=== PATIENT | male | born 1995 | race Caucasian/White ===

== ENCOUNTER 2018-02-25 11:17 | Emergency (ER) | payer BC ==
[2018-02-25] MEDS ORDERED: NA CHLORIDE 0.9% 1,000 ML ONE (11:59)
[2018-02-25] MEDS ORDERED: ONDANSETRON 4 MG/2 ML VIAL ONE (11:59)
[2018-02-25 12:03] LABS: Absolute Lymphocytes (CBC) 1.2 K/uL (0.7-4.9); Absolute Neutrophil 7.2 K/uL (1.8-8.0); Basophils % 0.8 % (0-1.3); Eosinophils % 0.3 % (0-4.4); Hematocrit 52.1 % (39.6-49.0); MCH 35.7 pg (27.0-35.0); MCV 101.4 fL (80-100); Monocytes % 10.1 % (3.3-12.3); RBC Red Blood Cell Count 5.14 M/uL (4.33-5.43)
[2018-02-25 12:23] LABS: AST/SGOT 159 U/L (15-37); Albumin 4.7 g/dL (3.4-5.0); Alkaline Phosphatase 201 U/L (45-117); BUN Blood Urea Nitrogen 20 mg/dL (7-18); Bicarbonate 17 mmol/L (21-32); Bilirubin Direct 0.5 mg/dL (0-0.2); Bilirubin Total 0.9 mg/dL (0.2-1.0); Glucose Level 110 mg/dL (74-106); Lipase 95 U/L (73-393); Potassium 3.9 mmol/L (3.5-5.1); Protein, Total 7.9 g/dL (6.4-8.2); Sodium Level 137 mmol/L (136-145)
[2018-02-25 12:48] LABS: ALT/SGPT 362 U/L (12-78)
--- NOTE | 2018-02-25 13:10 | ER ---
Nurse's Notes [facility] Name: Marco Delgado Age: 22 yrs Sex: Male : 1995 Arrival Date: 02/25/2018 Time: 11:21 Bed 19 Private MD: Adama Aguilera Diagnosis: Vomiting;Dehydration;Abnormal results of liver function studies Presentation: 02/25 11:23 Presenting complaint: Patient states: Patient reports vomiting for 5 days with 2 aj episodes of vomiting dark red blood. Presents to triage drinking water. Reports that he is able to urinate with no problems and is able to tolerate his hydrocodone when he takes it. Patient requested Phenergan in triage. Transition of care: patient was not received from another setting of care. Onset of symptoms was February 20, 2018. Risk Assessment: Do you want to hurt yourself or someone else? Patient reports no desire to harm self or others. Initial Sepsis Screen: Does the patient meet any 2 criteria? No. Patient's initial sepsis screen is negative. Does the patient have a suspected source of infection? No. Patient's initial sepsis screen is negative. Care prior to arrival: None. 11:23 Method Of Arrival: Ambulatory 11:23 Acuity: ALLY 3 aj Triage Assessment: 11:26 General: Appears in no apparent distress. uncomfortable, Behavior is calm, cooperative, aj appropriate for age. Pain: Denies pain. Neuro: Level of Consciousness is awake, alert, obeys commands, Oriented to person, place, time, situation, Appropriate for age. Respiratory: Airway is patent Respiratory effort is even, unlabored, Respiratory pattern is regular, symmetrical. GI: Reports nausea, vomiting, Vomiting dark red blood x 2 episodes. Derm: Skin is intact, is healthy with good turgor, Skin is pink, warm \\T\\ dry. normal. Historical: - Allergies: 11:26 No Known Allergies; aj - Home Meds: 11:26 Hydrocodone-Acetaminophen Oral [Active]; aj - PMHx: 11:26 "teeth pain"; aj - PSHx: 11:26 Knee surgery; aj - Immunization history:: Adult Immunizations up to date. - Social history:: Smoking status: Patient uses tobacco products, smokes one-half pack cigarettes per day. - Ebola Screening: : Patient negative for fever greater than or equal to 101.5 degrees Fahrenheit, and additional compatible Ebola Virus Disease symptoms Patient denies exposure to infectious person Patient denies travel to an Ebola-affected area in the 21 days before illness onset No symptoms or risks identified at this time. Screenin:28 Abuse screen: Denies threats or abuse. Nutritional screening: No deficits noted. iw Tuberculosis screening: No symptoms or risk factors identified. Fall Risk None identified. Assessment: 12:27 General: Appears in no apparent distress. uncomfortable, Behavior is calm, cooperative, em appropriate for age. Pain: Denies pain. Neuro: Level of Consciousness is awake, alert, obeys commands, Oriented to person, place, time, situation. Cardiovascular: Heart tones S1 S2 present Capillary refill < 3 seconds Patient's skin is warm and dry. Respiratory: Airway is patent Respiratory effort is even, unlabored, Respiratory pattern is regular, symmetrical. GI: Abdomen is flat, Bowel sounds present X 4 quads. Abd is soft and non tender X 4 quads. Reports nausea, vomiting, Patient currently denies diarrhea. : No signs and/or symptoms were reported regarding the genitourinary system. EENT: No signs and/or symptoms were reported regarding the EENT system. Derm: Skin is intact, Skin is pink, warm \\T\\ dry. Musculoskeletal: Capillary refill < 3 seconds, Range of motion: intact in all extremities. 12:30 Reassessment: I agree with previous assessment. hb 12:46 Reassessment: Lab alert: ALT 362, ERD notified. jl7 13:04 Reassessment: Patient appears in no apparent distress at this time. Patient and/or em family updated on plan of care and expected duration. Pain level reassessed. Patient is alert, oriented x 3, equal unlabored respirations, skin warm/dry/pink. pt request to be discharged, feels better, pt d/c IV, bandage applied, no bleeding noted Patient denies pain at this time. Patient states feeling better. Patient states symptoms have improved. Vital Signs: 11:28 BP 122 / 79; Pulse 92; Resp 18; Temp 97.7; Pulse Ox 96% on R/A; Weight 74.84 kg; Height aj 6 ft. 0 in. (182.88 cm); 12:30 BP 118 / 68; Pulse 81; Resp 18; Pulse Ox 99% on R/A; Pain 0/10; em 11:28 Body Mass Index 22.38 (74.84 kg, 182.88 cm) ED Course: 11:21 Patient arrived in ED. rg4 11:21 Adama Aguilera MD is Private Physician. rg4 11:25 Triage completed. aj 11:28 Arm band placed on left wrist. Patient placed in an exam room. aj 11:30 Toro Larson LVN is Primary Nurse. em 11:30 Byron Moseley MD is Attending Physician. gs 11:58 Initial lab(s) drawn, by me, sent to lab. Inserted saline lock: 20 gauge in right 5 antecubital area, using aseptic technique. Blood collected. 11:59 Patient has correct armband on for positive identification. Bed in low position. Call [facility] light in reach. Side rails up X 1. Pulse ox on. NIBP on. 11:59 Basic Metabolic Panel Sent. 5 11:59 CBC with Diff Sent. 5 11:59 Hepatic Function Sent. 5 11:59 Lipase Sent. 5 13:17 IV discontinued, intact, bleeding controlled, No redness/swelling at site. Pressure em dressing applied. 13:18 No provider procedures requiring assistance completed. em Administered Medications: 11:58 Drug: NS 0.9% 1000 ml Route: IV; Rate: 1 bolus; Site: right antecubital; em 12:39 Follow up: IV Status: Completed infusion; IV Intake: 1000ml em 12:06 Drug: Zofran 4 mg Route: IVP; Site: right antecubital; iw 12:30 Follow up: Response: No adverse reaction; Nausea is decreased iw Intake: 12:39 IV: 1000ml; Total: 1000ml. em Outcome: 13:09 Discharge ordered by . gs 13:17 Discharged to home ambulatory. em 13:17 Condition: good 13:17 Discharge instructions given to patient, Instructed on discharge instructions, follow up and referral plans. medication usage, Demonstrated understanding of instructions, follow-up care, medications, Prescriptions given X 1. 13:23 Patient left the ED. em Signatures: Sharlene Ayers RN RN Toro Larson, FIELD LABORER FIELD LABORER em Rebekah Park RN RN Benita Morel RN RN hb Garcia, Rubi rg4 Josephine Chaparro 5 Duyen Ashley RN RN 7 Byron Moseley MD MD gs Corrections: (The following items were deleted from the chart) 11:23 Presenting complaint: Patient states: Patient reports vomiting for 5 days. aj Presents to triage drinking water. Reports that he is able to urinate with no problems aj 11:23 Presenting complaint: Patient states: Patient reports vomiting for 5 days. aj Presents to triage drinking water. Reports that he is able to urinate with no problems and is able to tolerate his hydrocodone when he takes it. aj 11:23 Presenting complaint: Patient states: Patient reports vomiting for 5 days. aj Presents to triage drinking water. Reports that he is able to urinate with no problems and is able to tolerate his hydrocodone when he takes it. Patient requested Phenergan in triage aj
--- NOTE | 2018-02-25 13:10 | EDPHYS ---
Physician Documentation [facility] Name: Marco Delgado Age: 22 yrs Sex: Male : 1995 Arrival Date: 02/25/2018 Time: 11:21 Bed 19 Private MD: Adama Aguilera ED Physician Byron Moseley HPI: 02/25 13:16 This 22 yrs old Male presents to ER via Ambulatory with complaints of gs Vomiting. 13:16 The patient presents to the emergency department with nausea, vomiting. Onset: The gs symptoms/episode began/occurred suddenly. Possible causes: unknown. The symptoms are aggravated by food , The symptoms are alleviated by nothing. Associated signs and symptoms: Pertinent negatives: abdominal pain. Severity of symptoms: At their worst the symptoms were moderate in the emergency department the symptoms are unchanged. The patient has experienced similar episodes in the past, several times. The patient has not recently seen a physician. Historical: - Allergies: 11:26 No Known Allergies; aj - Home Meds: 11:26 Hydrocodone-Acetaminophen Oral [Active]; aj - PMHx: 11:26 "teeth pain"; aj - PSHx: 11:26 Knee surgery; aj - Immunization history:: Adult Immunizations up to date. - Social history:: Smoking status: Patient uses tobacco products, smokes one-half pack cigarettes per day. - Ebola Screening: : Patient negative for fever greater than or equal to 101.5 degrees Fahrenheit, and additional compatible Ebola Virus Disease symptoms Patient denies exposure to infectious person Patient denies travel to an Ebola-affected area in the 21 days before illness onset No symptoms or risks identified at this time. ROS: 13:16 All other systems are negative. gs Exam: 13:16 Head/Face: Normocephalic, atraumatic. Eyes: Pupils equal round and reactive to light, gs extra-ocular motions intact. Lids and lashes normal. Conjunctiva and sclera are non-icteric and not injected. Cornea within normal limits. Periorbital areas with no swelling, redness, or edema. ENT: Nares patent. No nasal discharge, no septal abnormalities noted. Tympanic membranes are normal and external auditory canals are clear. Oropharynx with no redness, swelling, or masses, exudates, or evidence of obstruction, uvula midline. Mucous membranes moist. Neck: Trachea midline, no thyromegaly or masses palpated, and no cervical lymphadenopathy. Supple, full range of motion without nuchal rigidity, or vertebral point tenderness. No Meningismus. Chest/axilla: Normal chest wall appearance and motion. Nontender with no deformity. No lesions are appreciated. Cardiovascular: Regular rate and rhythm with a normal S1 and S2. No gallops, murmurs, or rubs. Normal PMI, no JVD. No pulse deficits. Respiratory: Lungs have equal breath sounds bilaterally, clear to auscultation and percussion. No rales, rhonchi or wheezes noted. No increased work of breathing, no retractions or nasal flaring. Abdomen/GI: Soft, non-tender, with normal bowel sounds. No distension or tympany. No guarding or rebound. No evidence of tenderness throughout. Back: No spinal tenderness. No costovertebral tenderness. Full range of motion. Skin: Warm, dry with normal turgor. Normal color with no rashes, no lesions, and no evidence of cellulitis. MS/ Extremity: Pulses equal, no cyanosis. Neurovascular intact. Full, normal range of motion. Neuro: Awake and alert, GCS 15, oriented to person, place, time, and situation. Cranial nerves II-XII grossly intact. Motor strength 5/5 in all extremities. Sensory grossly intact. Cerebellar exam normal. Normal gait. 13:16 Constitutional: The patient appears alert, awake. Vital Signs: 11:28 BP 122 / 79; Pulse 92; Resp 18; Temp 97.7; Pulse Ox 96% on R/A; Weight 74.84 kg; Height aj 6 ft. 0 in. (182.88 cm); 12:30 BP 118 / 68; Pulse 81; Resp 18; Pulse Ox 99% on R/A; Pain 0/10; em 11:28 Body Mass Index 22.38 (74.84 kg, 182.88 cm) MDM: 11:37 Patient medically screened. gs 13:14 ED course: did not want to stay for lab results says feels better and wants to go home. gs 13:16 Differential diagnosis: Nonspecific abd pain, pancreatitis, viral gastroenteritis, gs gastroenteritis. Data reviewed: vital signs, nurses notes, lab test result(s). Counseling: I had a detailed discussion with the patient and/or guardian regarding: the historical points, exam findings, and any diagnostic results supporting the discharge/admit diagnosis. Response to treatment: the patient's symptoms have markedly improved after treatment. 02/25 11:40 Order name: Basic Metabolic Panel; Complete Time: 13:12 02/25 11:40 Order name: CBC with Diff; Complete Time: 13:12 02/25 11:40 Order name: Hepatic Function; Complete Time: 13:12 02/25 11:40 Order name: Lipase; Complete Time: 13:12 02/25 11:40 Order name: IV Saline Lock; Complete Time: 59 02/25 11:40 Order name: Labs collected and sent; Complete Time: :59 Administered Medications: 11:58 Drug: NS 0.9% 1000 ml Route: IV; Rate: 1 bolus; Site: right antecubital; em 12:39 Follow up: IV Status: Completed infusion; IV Intake: 1000ml em 12:06 Drug: Zofran 4 mg Route: IVP; Site: right antecubital; iw 12:30 Follow up: Response: No adverse reaction; Nausea is decreased iw Disposition: 02/25/18 13:09 Discharged to Home. Impression: Vomiting, Dehydration, Abnormal results of liver function studies. - Condition is Stable. - Discharge Instructions: Dehydration, Adult, Nausea and Vomiting, Adult. - Prescriptions for Zofran 4 mg Oral Tablet - take 1 tablet by ORAL route every 12 hours As needed; 6 tablet. - Medication Reconciliation Form, Thank You Letter, Antibiotic Education, Prescription Opioid Use form. - Follow up: Emergency Department; When: 2 - 3 days; Reason: Re-evaluation by your physician. Signatures: Dispatcher [employer] Sharlene Guzman RN RN aj Munoz, Edgar, ALUMINUM SIDING APPLICATOR ALUMINUM SIDING APPLICATOR em Rebekah Park RN RN iw Byron Moseley MD MD gs Corrections: (The following items were deleted from the chart) 13:13 13:09 02/25/2018 13:09 Discharged to Home. Impression: Vomiting. Condition is Stable. gs Forms are Medication Reconciliation Form, Thank You Letter, Antibiotic Education, Prescription Opioid Use. Follow up: Emergency Department; When: 2 - 3 days; Reason: Re-evaluation by your physician. 13:14 13:13 02/25/2018 13:09 Discharged to Home. Impression: Vomiting; Dehydration. Condition gs is Stable. Discharge Instructions: Nausea and Vomiting, Adult. Prescriptions for Zofran 4 mg Oral Tablet - take 1 tablet by ORAL route every 12 hours As needed; 6 tablet. and Forms are Medication Reconciliation Form, Thank You Letter, Antibiotic Education, Prescription Opioid Use. Follow up: Emergency Department; When: 2 - 3 days; Reason: Re-evaluation by your physician. 13:23 13:14 02/25/2018 13:09 Discharged to Home. Impression: Vomiting; Dehydration; Abnormal em results of liver function studies. Condition is Stable. Discharge Instructions: Nausea and Vomiting, Adult, Dehydration, Adult. Prescriptions for Zofran 4 mg Oral Tablet - take 1 tablet by ORAL route every 12 hours As needed; 6 tablet. and Forms are Medication Reconciliation Form, Thank You Letter, Antibiotic Education, Prescription Opioid Use. Follow up: Emergency Department; When: 2 - 3 days; Reason: Re-evaluation by your physician.
== END 2018-02-25 13:23 | disposition home or self-care (01) ==
LOC: ER 11:17
DX: E86.0 Dehydration (principal); R11.2 Nausea with vomiting, unspecified; R94.5 Abnormal results of liver function studies; F17.210 Nicotine dependence, cigarettes, uncomplicated
CPT/HCPCS: 36415; 80048; 80076; 83690; 85025; 96361; 96374; 99284; J2405; J7030

== ENCOUNTER 2018-06-03 10:40 | Observation (INO) | payer BC ==
[2018-06-03] MEDS ORDERED: ONDANSETRON 4 MG (ODT) TAB ONE (11:02)
[2018-06-03] MEDS ORDERED: NA CHLORIDE 0.9% 1,000 ML ONE ×2 (12:22→13:12)
[2018-06-03 12:28] LABS: Absolute Lymphocytes (CBC) 2.1 K/uL (0.7-4.9); Absolute Monocytes 0.9 K/uL (0.1-1.3); Absolute Neutrophil 11.3 K/uL (1.8-8.0); Basophils % 0.3 % (0-1.3); Eosinophils % 0.1 % (0-4.4); Hematocrit 59.8 % (39.6-49.0); Lymphocytes % 14.4 % (15.3-44.8); MPV 7.5 fL (7.6-11.3); Monocytes % 6.2 % (3.3-12.3); RBC Red Blood Cell Count 5.48 M/uL (4.33-5.43)
[2018-06-03 12:44] LABS: Albumin 5.9 g/dL (3.4-5.0); Bilirubin Direct 0.3 mg/dL (0-0.2); Bilirubin Total 0.7 mg/dL (0.2-1.0); Potassium 3.1 mmol/L (3.5-5.1); Protein, Total 8.9 g/dL (6.4-8.2)
[2018-06-03 12:52] LABS: Blood Morphology Comment NOTED (NOT SEEN); Macrocytosis 1+; Platelet Estimate ADEQ
[2018-06-03] MEDS ORDERED: POTASSIUM 25 MEQ EFFERV TAB ONE (13:43)
[2018-06-03 13:59] LABS: Magnesium 2.1 mg/dL (1.8-2.4)
[2018-06-03 15:17] LABS: Blood Gas Oxyhemoglobin 94.6 % (94-97); Blood O2 Saturation 96.6 % (92-98.5)
[2018-06-03 15:48] LABS: Urine Bacteria <20 /HPF (NONE SEEN); Urine RBC <5 /HPF (NONE SEEN)
[2018-06-03 15:49] LABS: Urine Culture Reflex Order NOT NEEDED
--- NOTE | 2018-06-03 16:00 | EDPHYS ---
Physician Documentation [facility] Name: Marco Delgado Age: 23 yrs Sex: Male : 1995 Arrival Date: 06/03/2018 Time: 10:41 Bed 6 Private MD: None, None ED Physician Byron Moseley HPI: 06/03 15:53 This 23 yrs old Male presents to ER via Ambulatory with complaints of gs Vomiting. 15:53 The patient presents to the emergency department with nausea, vomiting. Onset: The gs symptoms/episode began/occurred 1 week(s) ago, and became worse and became persistent. Possible causes: unknown. The symptoms are aggravated by nothing. The symptoms are alleviated by nothing. Associated signs and symptoms: Pertinent negatives: abdominal pain, diarrhea, GI bleeding. Severity of symptoms: At their worst the symptoms were severe incapacitating in the emergency department the symptoms are unchanged. The patient has experienced similar episodes in the past, a few times. Historical: - Allergies: 10:46 No Known Allergies; la1 - Home Meds: 12:36 None [Active]; hj - PMHx: 10:46 "teeth pain"; la1 - PSHx: 12:36 None; hj - Immunization history:: Adult Immunizations up to date. - Social history:: Smoking status: Patient uses tobacco products, smokes one-half pack cigarettes per day. - Ebola Screening: : No symptoms or risks identified at this time. ROS: 15:53 All other systems are negative. gs Exam: 15:53 Head/Face: Normocephalic, atraumatic. Eyes: Pupils equal round and reactive to light, gs extra-ocular motions intact. Lids and lashes normal. Conjunctiva and sclera are non-icteric and not injected. Cornea within normal limits. Periorbital areas with no swelling, redness, or edema. ENT: Nares patent. No nasal discharge, no septal abnormalities noted. Tympanic membranes are normal and external auditory canals are clear. Oropharynx with no redness, swelling, or masses, exudates, or evidence of obstruction, uvula midline. Mucous membranes moist. Neck: Trachea midline, no thyromegaly or masses palpated, and no cervical lymphadenopathy. Supple, full range of motion without nuchal rigidity, or vertebral point tenderness. No Meningismus. Chest/axilla: Normal chest wall appearance and motion. Nontender with no deformity. No lesions are appreciated. Cardiovascular: Regular rate and rhythm with a normal S1 and S2. No gallops, murmurs, or rubs. Normal PMI, no JVD. No pulse deficits. Respiratory: Lungs have equal breath sounds bilaterally, clear to auscultation and percussion. No rales, rhonchi or wheezes noted. No increased work of breathing, no retractions or nasal flaring. Abdomen/GI: Soft, non-tender, with normal bowel sounds. No distension or tympany. No guarding or rebound. No evidence of tenderness throughout. Back: No spinal tenderness. No costovertebral tenderness. Full range of motion. Skin: Warm, dry with normal turgor. Normal color with no rashes, no lesions, and no evidence of cellulitis. MS/ Extremity: Pulses equal, no cyanosis. Neurovascular intact. Full, normal range of motion. Neuro: Awake and alert, GCS 15, oriented to person, place, time, and situation. Cranial nerves II-XII grossly intact. Motor strength 5/5 in all extremities. Sensory grossly intact. Cerebellar exam normal. Normal gait. 15:53 Constitutional: The patient appears alert, awake, pale. Vital Signs: 10:49 BP 112 / 87; Pulse 97; Resp 18; Temp 97.2; Pulse Ox 98% on R/A; Weight 54.43 kg; Height la1 6 ft. (182.88 cm); 12:33 BP 131 / 88; Pulse 85; Resp 18; Pulse Ox 100% on R/A; hj 14:23 BP 120 / 81; Pulse 92; Resp 18; Pulse Ox 100% on R/A; hj 16:04 BP 118 / 78; Pulse 90; Resp 18; Pulse Ox 100% on R/A; hj 16:48 BP 120 / 78; Pulse 89; Resp 18; Pulse Ox 100% on R/A; hj 18:16 BP 122 / 75; Pulse 78; Resp 18; Pulse Ox 98% on R/A; hj 18:51 BP 122 / 85; Pulse 75; Resp 18; Pulse Ox 100% on R/A; hj 19:44 BP 133 / 82; ag4 19:44 Pulse 80; Resp 14; Temp 99.1(T); Pulse Ox 98% ; ag4 10:49 Body Mass Index 16.27 (54.43 kg, 182.88 cm) la1 MDM: 12:03 Patient medically screened. 15:53 Differential diagnosis: cholecystitis, pancreatitis, viral gastroenteritis, gs gastroenteritis. Data reviewed: vital signs, nurses notes. Response to treatment: the patient's symptoms have markedly improved after treatment, and as a result, I will admit patient. 06/03 12:08 Order name: Basic Metabolic Panel; Complete Time: 14:08 06/03 12:08 Order name: CBC with Diff; Complete Time: 12:56 06/03 12:08 Order name: Hepatic Function; Complete Time: 14:08 06/03 12:08 Order name: Lipase; Complete Time: 14:08 06/03 12:52 Order name: Manual Differential; Complete Time: 12:56 EDMS 06/03 12:58 Order name: Urine Microscopic Only; Complete Time: 16:00 06/03 13:55 Order name: Magnesium; Complete Time: 14:08 EDMS 06/03 14:09 Order name: Osmolality, Serum; Complete Time: 15:44 06/03 14:41 Order name: ABG; Complete Time: 15:44 06/03 15:33 Order name: Urine Dipstick--Ancillary (enter results) 06/03 15:48 Order name: Urine Drug Screen 06/03 15:48 Order name: ETOH Level 06/03 12:08 Order name: IV Saline Lock; Complete Time: 12:09 06/03 12:08 Order name: Labs collected and sent; Complete Time: 12:09 06/03 12:58 Order name: Urine Dipstick-Ancillary (obtain specimen); Complete Time: 14:53 06/03 13:31 Order name: PO challenge; Complete Time: 13:33 Administered Medications: 10:51 Drug: Zofran 4 mg Route: PO; la1 12:57 Follow up: Response: No adverse reaction hj 12:09 Drug: NS 0.9% 1000 ml Route: IV; Rate: 1 bolus; Site: right antecubital; hj 12:57 Follow up: IV Status: Completed infusion hj 12:58 Drug: NS 0.9% 1000 ml Route: IV; Rate: 1 bolus; Site: right antecubital; hj 13:34 Follow up: IV Status: Completed infusion hj 13:24 Drug: Potassium Effervescent Tablet 50 mEq Route: PO; 13:34 Follow up: Response: No adverse reaction Point of Care Testing: Blood Glucose: 11:25 Blood Glucose: 121 mg/dL; dom Ranges: Critical Glucose Levels:Adult <50 mg/dl or >400 mg/dl <40 mg/dl or >180 mg/dl Disposition: 06/03/18 15:59 Hospitalization ordered by Kd Araya for Inpatient Admission. Preliminary diagnosis are Metabolic acidemia, unspecified, Dehydration. - Bed requested for Telemetry/MedSurg (Inpatient). - Status is Inpatient Admission. ed1 - Condition is Stable. - Problem is new. - Symptoms have improved. UTI on Admission? No Signatures: Dispatcher [employer] EDMS Rebekah Park, RN JORDON Celina Adler RN RN ed1 Efren Yeager RN RN la1 Rafael Villegas RN RN hj Starr, Gregory, MD MD Corrections: (The following items were deleted from the chart) 13:01 12:59 UA MICROSCOPIC+U.LAB.BRZ ordered. EDNJ EDMS 13:56 13:24 MAGNESIUM+C.LAB.BRZ ordered. EDNJ EDMS 18:50 15:59 Hospitalization Ordered by Kd Araya MD for Inpatient Admission. Preliminary diagnosis is Metabolic acidemia, unspecified; Dehydration. Bed requested for Telemetry/MedSurg (Inpatient). Status is Inpatient Admission. Condition is Stable. Problem is new. Symptoms have improved. UTI on Admission? No. 19:58 18:50 06/03/2018 15:59 Hospitalization Ordered by Kd Araya MD for Inpatient ed1 Admission. Preliminary diagnosis is Metabolic acidemia, unspecified; Dehydration. Bed requested for Telemetry/MedSurg (Inpatient). Status is Inpatient Admission. Condition is Stable. Problem is new. Symptoms have improved. UTI on Admission? No. iw
--- NOTE | 2018-06-03 16:00 | ER ---
Nurse's Notes [facility] Name: Marco Delgado Age: 23 yrs Sex: Male : 1995 Arrival Date: 06/03/2018 Time: 10:41 Bed 6 Private MD: None, None Diagnosis: Metabolic acidemia, unspecified;Dehydration Presentation: 06/03 10:46 Presenting complaint: Patient states: For more than a week I am vomiting 20 or more la1 times a day. Transition of care: patient was not received from another setting of care. Onset of symptoms. Risk Assessment: Do you want to hurt yourself or someone else? Patient reports no desire to harm self or others. Initial Sepsis Screen: Does the patient meet any 2 criteria? No. Patient's initial sepsis screen is negative. Does the patient have a suspected source of infection? No. Patient's initial sepsis screen is negative. Care prior to arrival: None. 10:46 Method Of Arrival: Ambulatory la1 10:46 Acuity: ALLY 3 la1 Triage Assessment: 12:34 General: Appears in no apparent distress. uncomfortable, Behavior is calm, cooperative, hj appropriate for age. Pain: Denies pain. EENT: No signs and/or symptoms were reported regarding the EENT system. Neuro: Level of Consciousness is awake, alert, obeys commands, Oriented to person, place, time, situation, Appropriate for age. GI: Reports vomiting. Historical: - Allergies: 10:46 No Known Allergies; la1 - Home Meds: 12:36 None [Active]; hj - PMHx: 10:46 "teeth pain"; la1 - PSHx: 12:36 None; hj - Immunization history:: Adult Immunizations up to date. - Social history:: Smoking status: Patient uses tobacco products, smokes one-half pack cigarettes per day. - Ebola Screening: : No symptoms or risks identified at this time. Screenin:34 Abuse screen: Denies threats or abuse. Denies injuries from another. Nutritional hj screening: No deficits noted. Tuberculosis screening: No symptoms or risk factors identified. Fall Risk None identified. Assessment: 14:30 General: Appears in no apparent distress. uncomfortable, Behavior is calm, cooperative, hj appropriate for age. Pain: Denies pain. Neuro: Level of Consciousness is awake, alert, obeys commands, Oriented to person, place, time, situation, Appropriate for age. Cardiovascular: Capillary refill < 3 seconds Patient's skin is warm and dry. Respiratory: Airway is patent Respiratory effort is even, unlabored, Respiratory pattern is regular, symmetrical. GI: Reports vomiting. GI: Abdomen is non-distended. : No signs and/or symptoms were reported regarding the genitourinary system. EENT: No signs and/or symptoms were reported regarding the EENT system. Derm: No signs and/or symptoms reported regarding the dermatologic system. Musculoskeletal: No signs and/or symptoms reported regarding the musculoskeletal system. 15:30 Reassessment: Patient and/or family updated on plan of care and expected duration. Pain hj level reassessed. Patient is alert, oriented x 3, equal unlabored respirations, skin warm/dry/pink. Patient states feeling better. Patient states symptoms have improved. 16:48 Reassessment: Patient and/or family updated on plan of care and expected duration. Pain hj level reassessed. Patient is alert, oriented x 3, equal unlabored respirations, skin warm/dry/pink. aware of being admitted;l. 17:45 Reassessment: Patient and/or family updated on plan of care and expected duration. Pain hj level reassessed. Patient is alert, oriented x 3, equal unlabored respirations, skin warm/dry/pink. Patient states feeling better. Patient states symptoms have improved. 18:14 Reassessment: Patient and/or family updated on plan of care and expected duration. Pain hj level reassessed. Patient is alert, oriented x 3, equal unlabored respirations, skin warm/dry/pink. awaiting for room placement; Patient states feeling better. Patient states symptoms have improved. Vital Signs: 10:49 BP 112 / 87; Pulse 97; Resp 18; Temp 97.2; Pulse Ox 98% on R/A; Weight 54.43 kg; Height la1 6 ft. (182.88 cm); 12:33 BP 131 / 88; Pulse 85; Resp 18; Pulse Ox 100% on R/A; hj 14:23 BP 120 / 81; Pulse 92; Resp 18; Pulse Ox 100% on R/A; hj 16:04 BP 118 / 78; Pulse 90; Resp 18; Pulse Ox 100% on R/A; hj 16:48 BP 120 / 78; Pulse 89; Resp 18; Pulse Ox 100% on R/A; hj 18:16 BP 122 / 75; Pulse 78; Resp 18; Pulse Ox 98% on R/A; hj 18:51 BP 122 / 85; Pulse 75; Resp 18; Pulse Ox 100% on R/A; hj 19:44 BP 133 / 82; ag4 19:44 Pulse 80; Resp 14; Temp 99.1(T); Pulse Ox 98% ; ag4 10:49 Body Mass Index 16.27 (54.43 kg, 182.88 cm) la1 ED Course: 10:41 Patient arrived in ED. dl4 10:41 None, None is Private Physician. dl4 10:47 Triage completed. la1 10:47 Arm band placed on left wrist. la1 11:21 Byron Moseley MD is Attending Physician. gs 11:22 Shawanda Beal, RN is Primary Nurse. ph 11:26 Initial lab(s) drawn, by me. Inserted saline lock: 20 gauge in right antecubital area, hj using aseptic technique. Blood collected. 12:34 Patient has correct armband on for positive identification. Placed in gown. Bed in low hj position. Call light in reach. Side rails up X 1. Adult w/ patient. 14:41 Osmolality, Serum Sent. hj 15:54 Kd Araya MD is Hospitalizing Provider. gs 16:47 ETOH Level Sent. hj 18:40 Urine Drug Screen Sent. hj 19:15 Primary Nurse role handed off by Shawanda Beal, RN ed1 19:15 Celina Adler, RN is Primary Nurse. ed1 19:50 No provider procedures requiring assistance completed. Patient admitted, IV remains in ed1 place. intact, No redness/swelling at site. Administered Medications: 10:51 Drug: Zofran 4 mg Route: PO; la1 12:57 Follow up: Response: No adverse reaction hj 12:09 Drug: NS 0.9% 1000 ml Route: IV; Rate: 1 bolus; Site: right antecubital; hj 12:57 Follow up: IV Status: Completed infusion hj 12:58 Drug: NS 0.9% 1000 ml Route: IV; Rate: 1 bolus; Site: right antecubital; hj 13:34 Follow up: IV Status: Completed infusion hj 13:24 Drug: Potassium Effervescent Tablet 50 mEq Route: PO; dom 13:34 Follow up: Response: No adverse reaction dom Point of Care Testing: Blood Glucose: 11:25 Blood Glucose: 121 mg/dL; dom Ranges: Outcome: 15:59 Decision to Hospitalize by Provider. aki 19:57 Admitted to Med/surg accompanied by tech, family with patient, via wheelchair, room ed1 224, with chart, Report called to JORDON Ramirez 19:57 Condition: stable 19:57 Discharge instructions given to patient, family, Instructed on the need for admit, Demonstrated understanding of instructions. 19:58 Patient left the ED. ed1 Signatures: Celina Adler RN RN ed1 Efren Yeager RN RN la1 Shawanda Beal RN RN Rafael Villegas RN RN hj Starr, Gregory, MD MD Sotero Mckeon dl4 Anmol Glaser ag4
[2018-06-03 16:15] LABS: Urine Blood NEGATIVE (NEG); Urine Glucose NEGATIVE (NEG); Urine Protein 2+ (NEG); Urine Specific Gravity >1.030 (1.005-1.030); Urine pH 5.5 (5.0-7.0)
--- NOTE | 2018-06-03 16:56 | P.HP ---
Certification for Inpatient Patient admitted to: Observation With expected LOS: <2 Midnights Practitioner: I am a practitioner with admitting privileges, knowledge of patient current condition, hospital course, and medical plan of care. Services: Services provided to patient in accordance with Admission requirements found in Title 42 Section 412.3 of the Code of Federal Regulations Patient History Date of Service: 06/03/18 Reason for admission: Intractable nausea and vomiting History of Present Illness: This is a 23-year-old male with no past medical history admitted for intractable nausea vomiting for the past 1 week. Per patient, he has been vomiting for the past week. It has been non-bloody and non-bilious without any alleviating or exacerbating factors. Last episode was this morning. He had a similar admission in February 2018 when he was discharged from the ER. He denies any abdominal, diarrhea/constipation, chest pain, shortness of breath, dizziness, headache or any complaints. In the ER, patient was hemodynamically stable, gap of 18, with acidotic with a pH of 7.2 and low bicarb. the his other labs pertinent for glucose of 153, ketones in urine and hypokinesia medium. In the ER, he received Zofran, potassium and IV fluids. My exam patient was hemodynamically stable, alert oriented x3, though very sleepy. He is arousable, able to answer questions but appropriately and he was in no acute distress. Review of Systems 10-point ROS is otherwise unremarkable Physical Examination - Physical Exam General: Alert, In no apparent distress, Oriented x3, Other (Very sleepy, laying in dark with hoodie over his head, refusing to open his eyes for too long.) HEENT: Atraumatic, PERRLA, Mucous membr. moist/pink, EOMI, Sclerae nonicteric Neck: Supple, 2+ carotid pulse no bruit, No LAD, Without JVD or thyroid abnormality Respiratory: Clear to auscultation bilaterally, Normal air movement Cardiovascular: Regular rate/rhythm, Normal S1 S2 Gastrointestinal: Normal bowel sounds, No tenderness Musculoskeletal: No tenderness Integumentary: No rashes Neurological: Normal gait, Normal speech, Normal strength at 5/5 x4 extr, Normal tone, Normal affect Lymphatics: No axilla or inguinal lymphadenopathy - Studies Laboratory Data (last 24 hrs) 06/03/18 13:24: Magnesium Cancelled 06/03/18 12:10: WBC 14.3 H, Hgb 20.2 H, Hct 59.8 H, Plt Count 421 H 06/03/18 12:10: Sodium 138, Potassium 3.1 L, BUN 8, Creatinine 1.31 H, Glucose 153 H, Magnesium 2.1, Total Bilirubin 0.7, AST 15, ALT 35, Alkaline Phosphatase 139 H, Lipase 92 Assessment and Plan - Problems (Diagnosis) (1) Intractable nausea and vomiting Current Visit: Yes Status: Acute Qualifiers: Vomiting type: unspecified Qualified Code(s): R11.2 - Nausea with vomiting , unspecified (2) Metabolic acidosis Current Visit: Yes Status: Acute (3) Dehydration Current Visit: Yes Status: Acute (4) Current tobacco use Current Visit: Yes Status: Acute (5) Drug abuse Current Visit: Yes Status: Suspected (6) Hypokalemia Current Visit: Yes Status: Acute - Plan This is a 23-year-old male with: Intractable nausea and vomiting On chart review, patient requested IV Phenergan last time. Will continue with IV Zofran at this time. Patient denies any drug usage, those sounds suspiciously like marijuana induced hyperemesis. Metabolic acidosis Dehydration Continue IV fluids, maintenance dose Continue to monitor via a.m. labs Hypokalemia Replace in the ER. Will continue to monitor Suspected drug usage Patient denies any drug usage. Urinary drug screen pending. Per patient, he has been taking Tylenol #3 And promethazine/codeine past 4-5 months for a sore throat/teeth pain. When asked more details, he stated that he only takes the Tylenol 3 when his back hurts, which is about every 2 days. The last time he took it was this morning. Current tobacco use Current half-pack per day smoker for the past 4-5 years. Counseled on smoking cessation DVT prophylaxis: Lovenox GI prophylaxis: None Diet: Regular Disposition: Admit to floor with tele. Monitor via a.m. labs. Likely discharge home in the next 24 hr. - Advance Directives Does patient have a Living Will: No Does patient have a Durable POA for Healthcare: No
[2018-06-03 19:02] LABS: Barbiturates NEGATIVE (NEGATIVE); Benzodiazepines NEGATIVE (NEGATIVE); Cocaine NEGATIVE (NEGATIVE); METHAMPHETAM NEGATIVE (NEGATIVE); Methadone NEGATIVE (NEGATIVE); Opiates POSITIVE (NEGATIVE); Phencyclidine NEGATIVE (NEGATIVE); THC Cannibis NEGATIVE (NEGATIVE)
[2018-06-03] MEDS ORDERED: ONDANSETRON 4 MG/2 ML VIAL IV PRN (19:55)
[2018-06-03] MEDS: NA CHLORIDE 0.9% 1,000 ML IV SCH (22:06)
[2018-06-04] MEDS: NA CHLORIDE 0.9% 1,000 ML IV SCH (04:48)
[2018-06-04 05:39] LABS: Absolute Lymphocytes (CBC) 2.4 K/uL (0.7-4.9); Absolute Monocytes 0.9 K/uL (0.1-1.3); Absolute Neutrophil 5.3 K/uL (1.8-8.0); Basophils % 0.6 % (0-1.3); Eosinophils % 0.1 % (0-4.4); Hematocrit 44.8 % (39.6-49.0); MPV 7.1 fL (7.6-11.3); RBC Red Blood Cell Count 4.15 M/uL (4.33-5.43)
[2018-06-04 05:54] LABS: ALT/SGPT 20 U/L (12-78); AST/SGOT 11 U/L (15-37); Albumin 4.1 g/dL (3.4-5.0); Alkaline Phosphatase 90 U/L (45-117); BUN Blood Urea Nitrogen 7 mg/dL (7-18); Bicarbonate 18 mmol/L (21-32); Bilirubin Total 0.9 mg/dL (0.2-1.0); Glucose Level 113 mg/dL (74-106); Protein, Total 6.2 g/dL (6.4-8.2); Sodium Level 143 mmol/L (136-145)
[2018-06-04 06:49] LABS: Anisocytosis 2+; Blood Morphology Comment NOTED (NOT SEEN); Platelet Estimate ADEQ; Urine White Blood Cell Casts OK
[2018-06-04 06:50] LABS: Macrocytosis 2+
[2018-06-04] MEDS: KCL 20 MEQ/100 mL IVPB 20 MEQ/100 ML BAG IV SCH ×2 (07:25→09:00)
[2018-06-04] MEDS ORDERED: INFLUENZA VACCINE (for 3y+) 0.5 ML DOSE IMVAC ONE (08:00)
[2018-06-04] MEDS ORDERED: ENOXAPARIN 40 MG/0.4 ML SQ SCH (09:00)
[2018-06-04] MEDS ORDERED: POTASSIUM CL SA 10 MEQ TAB PO ONE (10:25)
--- NOTE | 2018-06-04 10:30 | P.SSS ---
Patient History Date of Service: 06/04/18 Reason for admission: Intractable nausea and vomiting History of Present Illness: This is a 23-year-old male with no past medical history admitted for intractable nausea vomiting for the past 1 week. Per patient, he has been vomiting for the past week. It has been non-bloody and non-bilious without any alleviating or exacerbating factors. Last episode was this morning. He had a similar admission in February 2018 when he was discharged from the ER. He denies any abdominal, diarrhea/constipation, chest pain, shortness of breath, dizziness, headache or any complaints. In the ER, patient was hemodynamically stable, gap of 18, with acidotic with a pH of 7.2 and low bicarb. the his other labs pertinent for glucose of 153, ketones in urine and hypokinesia medium. In the ER, he received Zofran, potassium and IV fluids. My exam patient was hemodynamically stable, alert oriented x3, though very sleepy. He is arousable, able to answer questions but appropriately and he was in no acute distress. Allergies No Known Allergies Allergy (Verified 06/03/18 20:50) Home Medications: NK [No Home Meds] 06/03/18 - Past Medical/Surgical History Has patient received pneumonia vaccine in the past: No Diabetic: No Past Medical History: Patient denies medical history - Social History Smoking Status: Current every day smoker Alcohol use: Yes CD- Drugs: Yes Caffeine use: Yes Place of Residence: Home Review of Systems 10-point ROS is otherwise unremarkable Physical Examination - Vital Signs Temperature: 98 F Blood Pressure: 125/78 Pulse: 68 Respirations: 20 Pulse Ox (%): 98 - Physical Exam General: Alert, In no apparent distress, Oriented x3 HEENT: Atraumatic, PERRLA, Mucous membr. moist/pink, EOMI, Sclerae nonicteric Neck: Supple, 2+ carotid pulse no bruit, No LAD, Without JVD or thyroid abnormality Respiratory: Clear to auscultation bilaterally, Normal air movement Cardiovascular: Regular rate/rhythm, Normal S1 S2 Gastrointestinal: Normal bowel sounds, No tenderness Musculoskeletal: No tenderness Integumentary: No rashes Neurological: Normal gait, Normal speech, Normal strength at 5/5 x4 extr, Normal tone, Normal affect Lymphatics: No axilla or inguinal lymphadenopathy - Studies Laboratory Data (last 24 hrs) 06/03/18 13:24: Magnesium Cancelled 06/03/18 12:10: WBC 14.3 H, Hgb 20.2 H, Hct 59.8 H, Plt Count 421 H 06/03/18 12:10: Sodium 138, Potassium 3.1 L, BUN 8, Creatinine 1.31 H, Glucose 153 H, Magnesium 2.1, Total Bilirubin 0.7, AST 15, ALT 35, Alkaline Phosphatase 139 H, Lipase 92 - Diagnosis (Problem(s)) (1) Intractable nausea and vomiting Current Visit: Yes Status: Acute Qualifiers: Vomiting type: unspecified Qualified Code(s): R11.2 - Nausea with vomiting , unspecified (2) Metabolic acidosis Current Visit: Yes Status: Acute (3) Dehydration Current Visit: Yes Status: Acute (4) Current tobacco use Current Visit: Yes Status: Acute (5) Drug abuse Current Visit: Yes Status: Suspected (6) Hypokalemia Current Visit: Yes Status: Acute Treatment Summary: Patient was admitted for intractable nausea vomiting. He was given IV fluids and kept NPO. In the morning, patient stated his nausea had resolved and he really wanted to eat. He said he wanted us to just bring him his plate for fluid and something to drink something very ice cold. He was hemodynamically stable, alert oriented x3 in no acute distress. His UDS was positive for opiates. He was given a list of primary care physicians to visit after this hospitalization stay. - Disposition Disposition: ROUTINE DISCHARGE Condition: GOOD Patient Discharge Instructions: Please follow up with the primary care physician in 1 week. A list of primary care physicians has been provided to you. Please return to the emergency room for worsening symptoms Diet: Regular Activity: Ad anthony Time Spent Managing Pts Care (In Minutes): 55
== END 2018-06-04 12:31 | disposition home or self-care (01) ==
LOC: ER 10:40 → ERHOLD 16:30 → 2ND 19:54
PROVIDERS: ADMIT Family Medicine; ATTEND Family Medicine
DX: R11.2 Nausea with vomiting, unspecified (principal); E87.2 Acidosis; E86.0 Dehydration; E87.6 Hypokalemia; F17.210 Nicotine dependence, cigarettes, uncomplicated
CPT/HCPCS: 36415; 80048; 80053; 80076; 80307; 80320; 81003; 81015; 82805; 82962; 83690; 83735; 83930; 85025; 94760; 96360; 99285; G0378; J1650; J2405; J7030; Q2035

== ENCOUNTER 2018-09-03 21:11 | Emergency (ER) | payer BC ==
--- NOTE | 2018-09-03 21:48 | ER ---
Nurse's Notes [facility] Name: Marco Delgado Age: 23 yrs Sex: Male : 1995 Arrival Date: 09/03/2018 Time: 21:16 Bed Waiting Private MD: Diagnosis: Presentation: 09/03 21:34 Presenting complaint: Patient states: I haven't been able to keep anything down for 5 ed1 days. I take too many pain pills. Transition of care: patient was not received from another setting of care. Onset of symptoms was August 29, 2018. Risk Assessment: Do you want to hurt yourself or someone else? Patient reports no desire to harm self or others. Initial Sepsis Screen: Does the patient meet any 2 criteria? No. Patient's initial sepsis screen is negative. Does the patient have a suspected source of infection? No. Patient's initial sepsis screen is negative. Care prior to arrival: None. 21:34 Method Of Arrival: Ambulatory ed1 21:34 Acuity: ALLY 3 ed1 Triage Assessment: 21:36 General: Appears uncomfortable, Behavior is anxious. Pain: Complains of pain in abdomen ed1 Pain currently is 10 out of 10 on a pain scale. GI: Reports nausea, vomiting, Patient currently denies diarrhea. Historical: - Allergies: 21:36 No Known Allergies; ed1 - Home Meds: 21:36 None [Active]; ed1 - PMHx: 21:36 None; ed1 - PSHx: 21:36 None; ed1 - Immunization history:: Adult Immunizations up to date. - Social history:: Smoking status: Patient uses tobacco products, smokes one pack cigarettes per day. Patient uses street drugs, Vicodin. - Ebola Screening: : Patient negative for fever greater than or equal to 101.5 degrees Fahrenheit, and additional compatible Ebola Virus Disease symptoms Patient denies exposure to infectious person Patient denies travel to an Ebola-affected area in the 21 days before illness onset No symptoms or risks identified at this time. Vital Signs: 21:36 BP 113 / 86; Pulse 96; Resp 20; Temp 97.8; Pulse Ox 97% on R/A; Weight 70.31 kg; Height ed1 6 ft. 5 in. (195.58 cm); Pain 10/10; 21:36 Body Mass Index 18.38 (70.31 kg, 195.58 cm) ed1 ED Course: 21:16 Patient arrived in ED. am2 21:35 Triage completed. ed1 21:36 Arm band placed on right wrist. Patient placed in waiting room, Patient notified of ed1 wait time. Administered Medications: No medications were administered Outcome: 21:44 Eloped from waiting room, post triage evaluation and consult. Pt did not want to wait ed1 for a room to be cleaned Time discovered patient gone: September 03, 2018 at 21:44 21:44 Condition: Pt eloped 21:44 Discharge instructions given to N/A 21:45 Patient left the ED. ed1 Signatures: Celina Adler RN RN ed1 Sharlene Hernandez am2
== END 2018-09-03 21:45 | disposition left against medical advice (07) ==
LOC: ER 21:11
DX: R11.10 Vomiting, unspecified (principal); F17.210 Nicotine dependence, cigarettes, uncomplicated
CPT/HCPCS: 99281

== ENCOUNTER 2018-09-05 20:45 | Emergency (ER) | payer BC ==
[2018-09-05] MEDS ORDERED: NA CHLORIDE 0.9% 1,000 ML ONE ×2 (21:37→22:27)
[2018-09-05] MEDS ORDERED: ONDANSETRON 4 MG (ODT) TAB ONE (21:43)
[2018-09-05 21:47] LABS: Absolute Lymphocytes (CBC) 1.7 K/uL (0.7-4.9); Absolute Monocytes 0.9 K/uL (0.1-1.3); Absolute Neutrophil 5.7 K/uL (1.8-8.0); Basophils % 0.2 % (0-1.3); Lymphocytes % 20.3 % (15.3-44.8); MPV 6.9 fL (7.6-11.3); Monocytes % 10.4 % (3.3-12.3); RBC Red Blood Cell Count 5.82 M/uL (4.33-5.43)
[2018-09-05 21:50] LABS: Hematocrit 60.7 % (39.6-49.0)
[2018-09-05 22:09] LABS: ALT/SGPT 36 U/L (12-78); AST/SGOT 17 U/L (15-37); Albumin 5.6 g/dL (3.4-5.0); Alkaline Phosphatase 134 U/L (45-117); BUN Blood Urea Nitrogen 21 mg/dL (7-18); Bicarbonate 24 mmol/L (21-32); Bilirubin Total 1.2 mg/dL (0.2-1.0); Creatine Phosphokinase 141 U/L (39-308); Glucose Level 114 mg/dL (74-106); Potassium 3.1 mmol/L (3.5-5.1); Protein, Total 9.6 g/dL (6.4-8.2); Sodium Level 134 mmol/L (136-145)
[2018-09-05 22:12] LABS: Urine Blood TRACE (NEG); Urine Glucose NEGATIVE (NEG); Urine Protein 3+ (NEG); Urine Specific Gravity 1.025 (1.005-1.030); Urine pH 6.5 (5.0-7.0)
[2018-09-05 22:37] LABS: Urine Bacteria <20 /HPF (NONE SEEN); Urine Culture Reflex Order NOT NEEDED; Urine Mucus 2+ /HPF (NONE SEEN); Urine RBC NONE SEEN /HPF (NONE SEEN)
--- NOTE | 2018-09-06 00:01 | EDPHYS ---
Physician Documentation [facility] Name: Marco Delgado Age: 23 yrs Sex: Male : 1995 Arrival Date: 09/05/2018 Time: 20:47 Bed 5 Private MD: ED Physician Byron Moseley HPI: 09/05 23:52 This 23 yrs old Male presents to ER via Ambulatory with complaints of Kidney gs problem. 23:52 The patient presents to the emergency department with nausea, vomiting. Onset: The gs symptoms/episode began/occurred gradually. Possible causes: unknown. The symptoms are aggravated by nothing. The symptoms are alleviated by nothing. Associated signs and symptoms: Pertinent negatives: constipation. Severity of symptoms: At their worst the symptoms were severe in the emergency department the symptoms have improved moderately. The patient has experienced similar episodes in the past, multiple times. chronic drug use, vomiting. 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 - Social history:: Smoking status: Patient uses tobacco products, smokes one pack cigarettes per day. - Ebola Screening: : Patient negative for fever greater than or equal to 101.5 degrees Fahrenheit, and additional compatible Ebola Virus Disease symptoms Patient denies exposure to infectious person Patient denies travel to an Ebola-affected area in the 21 days before illness onset. ROS: 23:52 All other systems are negative. gs Exam: 23:52 Head/Face: Normocephalic, atraumatic. Eyes: Pupils equal round and reactive to light, gs extra-ocular motions intact. Lids and lashes normal. Conjunctiva and sclera are non-icteric and not injected. Cornea within normal limits. Periorbital areas with no swelling, redness, or edema. ENT: Nares patent. No nasal discharge, no septal abnormalities noted. Tympanic membranes are normal and external auditory canals are clear. Oropharynx with no redness, swelling, or masses, exudates, or evidence of obstruction, uvula midline. Mucous membranes moist. Neck: Trachea midline, no thyromegaly or masses palpated, and no cervical lymphadenopathy. Supple, full range of motion without nuchal rigidity, or vertebral point tenderness. No Meningismus. Chest/axilla: Normal chest wall appearance and motion. Nontender with no deformity. No lesions are appreciated. Cardiovascular: Regular rate and rhythm with a normal S1 and S2. No gallops, murmurs, or rubs. Normal PMI, no JVD. No pulse deficits. Respiratory: Lungs have equal breath sounds bilaterally, clear to auscultation and percussion. No rales, rhonchi or wheezes noted. No increased work of breathing, no retractions or nasal flaring. Abdomen/GI: Soft, non-tender, with normal bowel sounds. No distension or tympany. No guarding or rebound. No evidence of tenderness throughout. Back: No spinal tenderness. No costovertebral tenderness. Full range of motion. Skin: Warm, dry with normal turgor. Normal color with no rashes, no lesions, and no evidence of cellulitis. MS/ Extremity: Pulses equal, no cyanosis. Neurovascular intact. Full, normal range of motion. Neuro: Awake and alert, GCS 15, oriented to person, place, time, and situation. Cranial nerves II-XII grossly intact. Motor strength 5/5 in all extremities. Sensory grossly intact. Cerebellar exam normal. Normal gait. 23:52 Constitutional: The patient appears alert, awake. Vital Signs: 20:50 BP 142 / 96; Pulse 66; Resp 18; Temp 98.7(O); Pulse Ox 100% on R/A; Weight 58.97 kg fc (R); Height 6 ft. 0 in. (182.88 cm) (R); Pain 0/10; 21:20 BP 120 / 77; Pulse 64; Resp 17 S; Temp 98.3(O); Pulse Ox 98% on R/A; cc3 22:28 BP 110 / 72; Pulse 66; Resp 16 S; Temp 98.3(O); Pulse Ox 97% on R/A; cc3 23:36 BP 128 / 86; Pulse 81; Resp 16; Pulse Ox 100% on R/A; ak1 09/06 00:20 BP 125 / 84; Pulse 80; Resp 16 S; Temp 98.1(O); Pulse Ox 100% on R/A; cc3 09/05 20:50 Body Mass Index 17.63 (58.97 kg, 182.88 cm) MDM: 09/05 21:10 Patient medically screened. 23:52 Differential diagnosis: Nonspecific abd pain, gastritis, gastroenteritis, tylenol gs overdose. Data reviewed: vital signs, nurses notes, lab test result(s). Counseling: I had a detailed discussion with the patient and/or guardian regarding: the historical points, exam findings, and any diagnostic results supporting the discharge/admit diagnosis, the need for outpatient follow up. 09/05 21:02 Order name: CBC with Diff 09/05 21: Order name: CMP 09/05 21: Order name: Urine Microscopic Only; Complete Time: 23:49 09/05 21: Order name: CPK; Complete Time: 22:26 09/05 21: Order name: Tylenol Level; Complete Time: 22:26 09/05 21:02 Order name: CBC with Automated Diff; Complete Time: 22:02 EDMS 09/05 21:02 Order name: Urine Dipstick-Ancillary (obtain specimen); Complete Time: 22:13 09/05 21: Order name: Comprehensive Metabolic Panel; Complete Time: 22:26 EDMS 09/05 22:06 Order name: Urine Dipstick--Ancillary (enter results); Complete Time: 22:26 ar5 Administered Medications: 21:25 Drug: NS 0.9% 1000 ml Route: IV; Rate: 1 bolus; Site: right antecubital; cc3 22:45 Follow up: Response: No adverse reaction; IV Status: Completed infusion; IV Intake: cc3 1000ml 21:30 Drug: Zofran 4 mg Route: PO; cc3 22:00 Follow up: Response: No adverse reaction; Nausea is decreased cc3 22:15 Drug: NS 0.9% 1000 ml Route: IV; Rate: 1 bolus; Site: right antecubital; cc3 23:30 Follow up: Response: No adverse reaction; IV Status: Completed infusion; IV Intake: cc3 1000ml 09/06 00:39 Drug: Phenergan 25 mg Route: IM; Site: right gluteus; ak1 00:39 Follow up: Response: Medication administered at discharge. ak1 Disposition: 09/05/18 23:59 Discharged to Home. Impression: Dehydration - polycythemia. - Condition is Stable. - Discharge Instructions: Dehydration, Adult, Polycythemia Vera. - Prescriptions for promethazine 25 mg Oral Tablet - take 1 tablet by ORAL route every 6 hours As needed; 15 tablet. - Medication Reconciliation Form, Thank You Letter, Antibiotic Education, Prescription Opioid Use form. - Follow up: Justin Hernandez DO; When: 2 - 3 days; Reason: Re-evaluation by your physician. Follow up: Adrianna Horowitz MD; When: 2 - 3 days; Reason: Re-evaluation by your physician. Signatures: Dispatcher [employer] EDWA Cayla Fajardo RN RN Lovely Chin RN RN ak1 Byron Moseley MD MD Johana Engle 3 Corrections: (The following items were deleted from the chart) 00:53 09/05 23:59 09/05/2018 23:59 Discharged to Home. Impression: Dehydration - ak1 polycythemia. Condition is Stable. Forms are Medication Reconciliation Form, Thank You Letter, Antibiotic Education, Prescription Opioid Use. Follow up: Justin Hernandez; When: 2 - 3 days; Reason: Re-evaluation by your physician. Follow up: Adrianna Palacio; When: 2 - 3 days; Reason: Re-evaluation by your physician.
--- NOTE | 2018-09-06 00:01 | ER ---
Nurse's Notes [facility] Name: Marco Delgado Age: 23 yrs Sex: Male : 1995 Arrival Date: 09/05/2018 Time: 20:47 Bed 5 Private MD: Diagnosis: Dehydration-polycythemia Presentation: 09/05 20:50 Presenting complaint: Patient states: that he normally takes 120 tabs of Vicodin 10 mg fc daily. 2 weeks ago he decided to try and stop. Has been taking only approx 10 tabs daily. Then 9 days ago he started to have nausea and vomiting along with decreased urine output. Was here approx 3 months ago for the same thing and states he had kidney problems. Transition of care: patient was not received from another setting of care. Onset of symptoms was August 27, 2018. Risk Assessment: Do you want to hurt yourself or someone else? Patient reports no desire to harm self or others. Initial Sepsis Screen: Does the patient meet any 2 criteria? No. Patient's initial sepsis screen is negative. Does the patient have a suspected source of infection? No. Patient's initial sepsis screen is negative. Care prior to arrival: None. 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 - Social history:: Smoking status: Patient uses tobacco products, smokes one pack cigarettes per day. - Ebola Screening: : Patient negative for fever greater than or equal to 101.5 degrees Fahrenheit, and additional compatible Ebola Virus Disease symptoms Patient denies exposure to infectious person Patient denies travel to an Ebola-affected area in the 21 days before illness onset. Screenin:50 Abuse screen: Denies threats or abuse. Nutritional screening: No deficits noted. fc Tuberculosis screening: No symptoms or risk factors identified. Fall Risk None identified. Assessment: 21:05 General: Appears in no apparent distress. uncomfortable, Behavior is calm, cooperative, cc3 appropriate for age. Pain: Complains of pain in flank. Neuro: Level of Consciousness is awake, alert, obeys commands, Oriented to person, place, time, situation, Appropriate for age. Cardiovascular: Patient's skin is warm and dry. Respiratory: Airway is patent Respiratory effort is even, unlabored, Respiratory pattern is regular, symmetrical. GI: Abdomen is flat. : No signs and/or symptoms were reported regarding the genitourinary system. EENT: No signs and/or symptoms were reported regarding the EENT system. Derm: No signs and/or symptoms reported regarding the dermatologic system. Musculoskeletal: Circulation, motion, and sensation intact. Range of motion: intact in all extremities. 22:27 Reassessment: Patient appears in no apparent distress at this time. Patient and/or cc3 family updated on plan of care and expected duration. Pain level reassessed. Patient is alert, oriented x 3, equal unlabored respirations, skin warm/dry/pink. 23:35 Reassessment: pt stated to Lizbeth with Xray he has been vomiting on the floor, pt then ak1 asked Jeison for apple juice. pt informed of need to wait for test results prior to having anything else by mouth per ERP. 09/06 00:53 Reassessment: Patient appears in no apparent distress at this time. No changes from ak1 previously documented assessment. pt with steady gait at discharge. Vital Signs: 09/05 20:50 BP 142 / 96; Pulse 66; Resp 18; Temp 98.7(O); Pulse Ox 100% on R/A; Weight 58.97 kg (R); Height 6 ft. 0 in. (182.88 cm) (R); Pain 0/10; 21:20 BP 120 / 77; Pulse 64; Resp 17 S; Temp 98.3(O); Pulse Ox 98% on R/A; cc3 22:28 BP 110 / 72; Pulse 66; Resp 16 S; Temp 98.3(O); Pulse Ox 97% on R/A; cc3 23:36 BP 128 / 86; Pulse 81; Resp 16; Pulse Ox 100% on R/A; ak1 09/06 00:20 BP 125 / 84; Pulse 80; Resp 16 S; Temp 98.1(O); Pulse Ox 100% on R/A; cc3 09/05 20:50 Body Mass Index 17.63 (58.97 kg, 182.88 cm) ED Course: 09/05 20:47 Patient arrived in ED. es 20:50 Arm band placed on Patient placed in an exam room, on a stretcher. fc 20:50 Patient has correct armband on for positive identification. Placed in gown. Bed in low fc position. Call light in reach. Pulse ox on. NIBP on. 20:50 No provider procedures requiring assistance completed. fc 21:00 Arturo Heard, RN is Primary Nurse. mg2 21:02 Byron Moseley MD is Attending Physician. gs 21:05 Johana Engle is Primary Nurse. cc3 21:07 Triage completed. fc 21:34 Inserted saline lock: 20 gauge in right antecubital area, using aseptic technique. oe Blood collected. 21:52 Notified ED physician of a critical lab result(s). Hct. 60.7. ak1 23:56 Justin Hernandez DO is Referral Physician. 23:57 Adrianna Horowitz MD is Referral Physician. 09/06 00:30 IV discontinued, intact, bleeding controlled, No redness/swelling at site. Pressure cc3 dressing applied. Administered Medications: 09/05 21:25 Drug: NS 0.9% 1000 ml Route: IV; Rate: 1 bolus; Site: right antecubital; cc3 22:45 Follow up: Response: No adverse reaction; IV Status: Completed infusion; IV Intake: cc3 1000ml 21:30 Drug: Zofran 4 mg Route: PO; cc3 22:00 Follow up: Response: No adverse reaction; Nausea is decreased cc3 22:15 Drug: NS 0.9% 1000 ml Route: IV; Rate: 1 bolus; Site: right antecubital; cc3 23:30 Follow up: Response: No adverse reaction; IV Status: Completed infusion; IV Intake: cc3 1000ml 09/06 00:39 Drug: Phenergan 25 mg Route: IM; Site: right gluteus; ak1 00:39 Follow up: Response: Medication administered at discharge. ak1 Intake: 09/05 22:45 IV: 1000ml; Total: 1000ml. cc3 23:30 IV: 1000ml; Total: 2000ml. cc3 Outcome: 23:59 Discharge ordered by . 09/06 00:52 Discharged to home ambulatory, with family. ak1 Condition: good Discharge instructions given to patient, Instructed on discharge instructions, follow up and referral plans. no drinking with medication, no driving heavy equipment, medication usage, Demonstrated understanding of instructions, follow-up care, medications, Prescriptions given X 1. 00:53 Patient left the ED. ak1 Signatures: Helena Amin Felicia RN RN Lovely Fox RN RN ak1 Jeison Garcia Gregory, MD MD Arturo Heard RN [place] [facility] [place]ana Engle cc3 Corrections: (The following items were deleted from the chart) 09/05 22:25 22:25 General: Appears cc3 cc3
[2018-09-06] MEDS ORDERED: PROMETHAZINE 25 MG/ML VIAL ONE (00:39)
== END 2018-09-06 00:53 | disposition home or self-care (01) ==
LOC: ER 20:45
DX: E86.0 Dehydration (principal); D75.1 Secondary polycythemia; F17.210 Nicotine dependence, cigarettes, uncomplicated
CPT/HCPCS: 36415; 80053; 80329; 81003; 81015; 82550; 85025; 96360; 96361; 96372; 99284; J2550; J7030